=== PATIENT | male | born 1960 | race Caucasian/White ===

== ENCOUNTER 2023-06-10 07:23 | Emergency (ER) | payer OTHER, SELFPAY ==
[2023-06-10] VITALS (22 sets, daily range): BP systolic 104–195; BP diastolic 68–120; PULSE 64–115; RESP 13–20; TEMP 36.6–37; O2SAT 93–100; BMI 38.5
--- NOTE | 2023-06-10 07:45 | EKG12_ITS ---
Test Reason : CP Blood Pressure : / mmHG Vent. Rate : 118 BPM Atrial Rate : 000 BPM P-R Int : 000 ms QRS Dur : 116 ms QT Int : 340 ms P-R-T Axes : 000 -38 078 degrees QTc Int : 476 ms Atrial fibrillation with rapid ventricular response with premature ventricular or aberrantly conducte d complexes Left axis deviation Incomplete right bundle branch block Inferior infarct , age undetermined Abnormal ECG Confirmed by Jey Patel ([id number]), food editor DOREEN HERNANDEZ ([id number]) on 06/11/2023 11:16:23 AM Referred By: CHANDANA Confirmed By:Jey Patel
[2023-06-10 08:02] LABS: Absolute Lymphocyte Count 1.35 X10^3/uL (0.83-4.51); Absolute Neutrophil Count 3.4 X10^3/uL (2.0-7.7); Basophil# 0.06 X10^3/uL; Eosinophil# 0.19 X10^3/uL; Eosinophils% 3.3 % (0-5); Hematocrit 44.4 % (40-54); Hemoglobin 14.1 g/dL (13.0-16.5); Lymphocyte # 1.35 X10^3/ul (0.83-4.51); Lymphocyte % 23.6 % (19-41); Mean Corp Hgb Conc 31.8 g/dL (32-36); Mean Corpuscular Hgb 29.7 pg (27.0-32.0); Mean Corpuscular Volume 93.5 fL (80-94); Monocyte# 0.68 X10^3/uL; Monocyte% 11.9 % (0-10); NRBC Flagged by Analyzer 0 % (0-5); Neutrophil # 3.42 X10^3/uL (2.7-7.7); Neutrophil % 59.7 % (47-70); Platelet Count 240 K/mm3 (150-450); RBC Distribution Width CV 12.6 % (11.6-14.6); RBC Distribution Width SD 43.6 fl (35.1-43.9); Red Blood Count 4.75 M/mm3 (4.6-6.2); White Blood Count 5.7 K/mm3 (4.4-11.0)
--- NOTE | 2023-06-10 08:04 | RAD_ITS ---
STUDY: X-RAY CHEST REASON FOR EXAM: Male, 62 years old. Chest pain TECHNIQUE: Single AP portable view of the chest. COMPARISON: None. FINDINGS: EKG electrodes are seen. The lungs are clear and expanded. There is no demonstrated pleural abnormality. There is borderline cardiomegaly. Normal mediastinum and pal. Normal visualized pulmonary arteries. There is atherosclerotic tortuosity of the aortic arch and descending thoracic aorta. There are degenerative changes of the visualized thoracic spine. Prior fusion in the lower cervical spine. There is no demonstrated abnormality of the visualized soft tissue structures of the upper abdomen. RAD/Chest 1 View (Portable) IMPRESSION: No acute abnormality is seen. Electronically Signed: Rodrigo Hardwick MD at 10:29 EDT ,
--- NOTE | 2023-06-10 08:19 | ED.RN ---
NO OLD EKG
[2023-06-10] MEDS: Metoprolol Tartrate 5 MG/5 ML Vial IV (08:24)
--- NOTE | 2023-06-10 08:33 | ED.VIS.CHEST ---
HPI History of Present Illness Chief Complaint: Chest Pain Informant: patient Narrative Narrative: Patient is 62-year-old male with history of chronic heart failure, GERD, hyperlipidemia, prostate cancer and is unaware of history of atrial fibrillation, not on any anticoagulation however does have a documented history of proximal A-fib. He is presenting with chest discomfort, diaphoresis and racing heartbeat. Patient states he felt fine when he went to work this morning. He then started to have chest discomfort in the center of his chest that does not radiate and felt mildly short of breath. His Apple Watch that he was in A-fib and his heart rate was in the 120s. He did take 325 mg of aspirin at work. Came in for further evaluation. Notes that over the past week he has been a little more short of breath on exertion but denies any new swelling of his legs. States he gets some chronic dependent edema at the end of the workday. Denies any cough, fever, congestion or other infectious symptoms. Denies any GI or symptoms. No other complaints or concerns at this time. Cardiology visit from 05/17/[address] Patel are reviewed which shows that has a known history of coronary artery disease with moderate ostial left main stenosis on catheterization in October 2022. No stent placed and he had nonobstructive 45% proximal left main trunk lesion with no segmental wall motion abnormalities noted. There is mild global LV systolic dysfunction with an EF of 45 to 50%. Patient had chronic dyspnea on exertion. EKG with incomplete right bundle branch block and old inferior wall infarct. [facility] Medical History Anxiety and depression Chronic heart failure GERD (gastroesophageal reflux disease) Hyperlipidemia Hypertension MELINDA (obstructive sleep apnea) Paroxysmal atrial fibrillation Home Medications amlodipine 10 mg tablet 10 mg PO DAILY 05/08/23 [History Last Taken Unknown] aspirin 81 mg tablet,delayed release (Adult Aspirin Regimen) 81 mg PO DAILY 05/08/23 [History Last Taken Unknown] fluoxetine 40 mg capsule (Prozac) 40 mg PO DAILY 05/08/23 [History Last Taken Unknown] losartan 100 mg-hydrochlorothiazide 25 mg tablet 1 tab PO DAILY 05/08/23 [History Last Taken Unknown] rosuvastatin 40 mg tablet (Crestor) 40 mg PO DAILY 05/08/23 [History Last Taken Unknown] spironolactone 25 mg tablet (Aldactone) 25 mg PO DAILY 05/08/23 [History Last Taken Unknown] carvedilol 25 mg tablet 25 mg PO BID 05/17/23 [History Last Taken Unknown] ezetimibe 10 mg tablet 10 mg PO DAILY 05/17/23 [History Last Taken Unknown] Allergy/AdvReac Type Severity Reaction Status Date / Time lisinopril AdvReac cough Verified 06/10/23 07:26 Family History Father Arrhythmia Arthritis Hypertension Cancer Heart disease Mother Arthritis Brother Hypertension Sister Cancer Surgical History History of back surgery History of cardiac catheterization History of elbow surgery History of right knee surgery History of surgery on arm Social History Smoking Status: Never smoker Smokeless tobacco user: chewing tobacco alcohol intake: current substance use type: does not use caffeine: Yes Type: carbonated beverages ROS ROS ED Constitutional Constitutional ED: Reports sweats; Denies chills or fever(s) Eyes Eyes: Denies change in vision ENT ENT ED: Denies sore throat Cardiovascular Cardiovascular: Reports as per HPI, chest pain and palpitations Respiratory/Chest Respiratory/Chest: Reports dyspnea on exertion; Denies cough or dyspnea Gastrointestinal Gastrointestinal: Denies abdominal pain, diarrhea, nausea or vomiting Musculoskeletal Musculoskeletal: Denies arthralgias or myalgias Integumentary Denies rash Neurologic Neurologic: Denies headache(s), paresthesias or weakness Psychiatric Psychiatric: Denies anxiety Hematologic/Lymphatic Hematologic/Lymphatic: Denies easy bleeding or easy bruising EXAM Physical Exam Const Vital Signs: 06/10/23 07:26 06/10/23 07:41 06/10/23 07:53 Temperature 98.6 F Temperature Source Temporal Pulse Rate 82 Respiratory Rate 18 Respiratory Effort Normal Non-Labored Blood Pressure 195/120 H Blood Pressure Mean 145 Pulse Ox 100 97 Oxygen Delivery Method Room Air Room Air 06/10/23 08:23 06/10/23 08:47 06/10/23 09:01 Temperature Temperature Source Pulse Rate 115 H 84 85 Respiratory Rate 17 13 16 Respiratory Effort Blood Pressure 146/94 H 135/107 H 138/89 H Blood Pressure Mean 111 116 105 Pulse Ox 96 96 97 Oxygen Delivery Method Room Air Room Air 06/10/23 10:19 06/10/23 10:21 06/10/23 10:25 Temperature Temperature Source Pulse Rate 94 94 97 Respiratory Rate 19 H 19 H Respiratory Effort Blood Pressure 155/109 H 155/109 H 122/89 H Blood Pressure Mean 124 100 Pulse Ox 97 97 Oxygen Delivery Method Room Air 06/10/23 11:01 06/10/23 12:05 06/10/23 12:08 Temperature Temperature Source Pulse Rate 83 92 85 Respiratory Rate 20 H 16 19 H Respiratory Effort Blood Pressure 132/94 H 123/83 H 125/83 H Blood Pressure Mean 106 96 97 Pulse Ox 98 98 97 Oxygen Delivery Method Room Air Room Air Room Air 06/10/23 13:08 06/10/23 12:00 06/10/23 13:00 Temperature Temperature Source Pulse Rate 81 84 105 H Respiratory Rate 18 18 Respiratory Effort Blood Pressure 145/107 H 125/83 H 145/107 H Blood Pressure Mean 97 119 Pulse Ox 97 93 Oxygen Delivery Method Room Air Room Air 06/10/23 13:30 06/10/23 14:00 Temperature Temperature Source Pulse Rate 87 76 Respiratory Rate 18 16 Respiratory Effort Blood Pressure 137/117 H 124/89 H Blood Pressure Mean 123 100 Pulse Ox 98 96 Oxygen Delivery Method Room Air Room Air Positive well nourished General Appearance ED: Negative for pallor HEENT Reports moist mucous membranes normocephalic Eyes General Eye ED: Negative for pale conjunctiva Neck supple and no JVD Chest Wall inspection of chest normal and palpation of chest normal Resp normal respiratory effort and clear to auscultation bilaterally Cardio no murmurs Rate: tachycardic Rhythm: abnormal rhythm irregularly irregular GI normal to inspection, nondistended, normoactive bowel sounds and soft to palpation Extremity normal to inspection General Extremety ED: Negative for edema General Extremity: Negative for edema Neuro oriented x3 Sensorium / Orientation: awake and alert Motor Exam: Negative for general weakness Psych mental status grossly normal Skin no rashes or lesions noted and no wounds General Skin Exam: Negative for pallor MDM MDM MDM Narrative Medical decision making narrative: Patient is evaluated for chest discomfort as well as diaphoresis. Upon arrival he is tachycardic and hypertensive. He is found to be in atrial fibrillation. He is not currently treated for atrial fibrillation. Is given IV metoprolol with improvement of rate control however he continues to have chest pain. Because of this continued chest discomfort is given trial of nitroglycerin with improvement. Is given further nitroglycerin and then Nitropaste. Case is discussed with his french teacher, Dr. Patel as his workup was otherwise normal with a normal D-dimer, normal high since he troponin, only a mildly elevated BNP (clinically does not appear fluid overloaded) and a normal TSH with no significant electrolyte abnormalities. We reviewed the patient's prior cath report shows that patient does have left mMain trunk disease. Concern is that he needs a specialized catheterization of the left main trunk. His french teacher that previously cardiac catheter in him is at [facility], Dr. Summers. Dr. Patel is able to speak to Dr. Banda who is covering for his french teacher. He feels that patient should go to the [facility]. I discussed with the cardiac fellow there who accepts the patient under Dr. Nolan's service. Patient is given a dose of Eliquis as well as Toprol tartrate in the emergency room with new onset atrial fibrillation and for further rate control. Patient and are agreeable with this plan of care. History & Record Review Additional record(s) reviewed:: Prior outpatient record (Cardiology visit) Lab Data Attestation: I reviewed the patient's lab results. Labs: Laboratory Results - last 24 hr 06/10/23 06/10/23 07:35 10:22 WBC 5.7 RBC 4.75 Hgb 14.1 Hct 44.4 MCV 93.5 MCH 29.7 MCHC 31.8 L RDW Std Deviation 43.6 RDW Coeff of Jaqueline 12.6 Plt Count 240 MPV 11.0 Immature Gran % (Auto) 0.500 Neut % (Auto) 59.7 Lymph % (Auto) 23.6 [place] % (Auto) 11.9 H Eos % (Auto) 3.3 Baso % (Auto) 1.0 Absolute Neuts (auto) 3.4 Absolute Lymphs (auto) 1.35 Nucleated RBC % 0 PT 14.1 INR 1.1 APTT 29.6 D-Dimer Quant (PE/DVT) 0.28 Sodium 143 Potassium 3.3 L Chloride 110 H Carbon Dioxide 26.0 Anion Gap 7 BUN 10 Creatinine 1.24 Estim Creat Clear Calc 87.09 Est GFR (MDRD) Af Amer 76 Est GFR (MDRD) Non-Af 63 BUN/Creatinine Ratio 8.1 L Glucose 108 H Calcium 8.7 Magnesium 2.1 Troponin I High Sens 17 20 B-Natriuretic Peptide 142.3 H TSH 3.44 Radiography Chest X-Ray - ED: 1 View, Read by ED Physician, Read by Radiologist and No Acute Disease Diagnostic Testing: Clinical Impression(s) from Imaging Studies Chest X-Ray 06/10/23 08:04 IMPRESSION: No acute abnormality is seen. Electronically Signed: Rodrigo Hardwick MD at 10:29 EDT , Rhythm Strip Rhythm Strip: A-fib Rate: 118 Ectopy: None and PVC(s) EKG Initial EKG: Attestation: I personally reviewed and interpreted this EKG as follows: Interpretation: Atrial Fibrillation Comments: Atrial fibrillation with rapid ventricular response at a rate of 118 bpm Left axis deviation Aberrantly conducted complexes present Incomplete right bundle branch block Normal ST segments Compared to prior EKG on 05/17/2023, patient is now in atrial fibrillation and has PVCs Management Discussion w/another healthcare provider: Nurse Liaison Discharge Plan Triage Chief Complaint: Chest Pain ED Provider: Stephanie Hinton Dx/Rx/DC Orders Clinical Impression: Atrial fibrillation with rapid ventricular response, Hypertension, CAD (coronary artery disease), Chest pain Prescriptions: No Action aspirin [Adult Aspirin Regimen] 81 mg tablet,delayed release (DR/EC) 81 mg PO DAILY spironolactone [Aldactone] 25 mg tablet 25 mg PO DAILY rosuvastatin [Crestor] 40 mg tablet 40 mg PO DAILY fluoxetine [Prozac] 40 mg capsule 40 mg PO DAILY losartan-hydrochlorothiazide 100-25 mg tablet 1 tab PO DAILY amlodipine 10 mg tablet 10 mg PO DAILY carvedilol 25 mg tablet 25 mg PO BID Rx Instructions: must administer with a meal/food ezetimibe 10 mg tablet 10 mg PO DAILY Primary Care Provider: Edvin Rodríguez Referrals: Edvin Rodríguez DO [Primary Care Provider] - Disposition Disposition: Acute Care Hospital Discharge Location: [facility]
[2023-06-10 08:41] LABS: BNP,B-Type NATRIURETIC PEPTIDE 142.3 pg/mL (0-100)
[2023-06-10 09:03] LABS: Partial Thromboplast Time 29.6 Seconds (24.1-36.2)
[2023-06-10 09:11] LABS: International Normalized Ratio 1.1; Prothrombin Time (Protime)PT. 14.1 SECONDS (11.7-14.9)
[2023-06-10 09:24] LABS: D-Dimer Quantitative (DVT/PE) 0.28 FEU/ug/m (0.27-0.49)
[2023-06-10 10:07] LABS: Anion Gap 7 (5-15); BUN 10 mg/dL (7-18); BUN/Creat Ratio 8.1 RATIO (10-20); Calcium,Total 8.7 mg/dL (8.5-10.1); Chloride 110 mmol/L (98-107); Creatinine, Serum 1.24 mg/dL (0.70-1.30); EST Glomerular Filtration Rate 63 mL/min (>60); Est Glom Filt Rate - Afr Amer 76 mL/min (>60); Estimated Creatinine Clearance 87.09 ml/min; Glucose 108 mg/dL (74-106); Magnesium 2.1 mg/dL (1.6-2.6); Potassium 3.3 mmol/L (3.5-5.1); Reflex Troponin-HS? (from REC) Y; Sodium Level 143 mmol/L (136-145); Thyroid Stim Hormone (TSH) 3.44 uIU/mL (0.358-3.74); Troponin-I HS (w/2H Reflex) 17 pg/mL (3.0-78.0)
[2023-06-10] MEDS: Nitroglycerin SL (ED/IMG/CATH) 0.4 MG TABLET 0.400000000000000022 MG SL (10:21)
[2023-06-10 10:49] LABS: Troponin-I HS 20 pg/mL (3.0-78.0)
--- NOTE | 2023-06-10 13:01 | CON.PCM.CA_ITS ---
Assessment & Plan Assessment/Plan (1) Paroxysmal atrial fibrillation: PLAN: Patient has a history of episodic short bursts of palpitations. His iWatch has never told he is in atrial fibs until today at over 600 hours. His palpitations have persisted since that point in time. Presented the emergency department with a rapid ventricular response to his atrial fibrillation. He also was complaining of chest discomfort but is cardiac high-sensitivity troponins were 17 and 20 respectively. The patient does have known left main trunk disease. He has minimal other disease on catheterization October 2022. (2) CAD (coronary artery disease): QUALIFIERS: Coronary Disease-Associated Artery/Lesion type: [place] artery [place] vs. transplanted heart: [place] heart Associated angina: with unspecified form of angina Qualified Code(s): I25.119 - Atherosclerotic heart disease of [place] coronary artery with unspecified angina pectoris PLAN: The patient's left main trunk was 45% the minimal luminal diameter was measured at 8.6 mm and the IFR was 0.99 Catheterization October 2022. This was done by Dr. Summers at [facility]. The patient is now complaining of chest discomfort despite his rate being controlled but remaining in atrial fibrillation. Given his left main trunk lesion I am concerned about putting this patient on a treadmill and he does have significant dyspnea on exertion which would limit his exercise ability. I did not feel that a patient with a known ostial left main trunk lesion should be cath in the low risk lab and therefore we will ask that he be transferred to [facility] to the service of Dr. Wilson for for further evaluation. The patient and had requested this and I agree that this is the best route of the evaluation. (3) Chronic heart failure: QUALIFIERS: Heart failure type: systolic Qualified Code(s): I50.22 - Chronic systolic (congestive) heart failure PLAN: The patient appears to be well compensated from his heart failure he is on guideline medical therapy. He is not on SGLT2 inhibitors. (4) Hypertension: QUALIFIERS: Hypertension type: primary hypertension Qualified Code(s): I10 - Essential (primary) hypertension PLAN: The patient has known and aggressive medical therapy his systolic was elev ated in the office back in May. His blood pressures have been labile in the emergency department but have he has not been hypotensive. (5) Hyperlipidemia: QUALIFIERS: Hyperlipidemia type: mixed hyperlipidemia Qualified Code(s): E78.2 - Mixed hyperlipidemia PLAN: Lipids are treated by his primary care physician Dr. Rodríguez he is on aggressive statin therapy. PLAN: Plan 1. Will continue use of Lopressor for rate control. Will add nitroglycerin paste due to recurrence of his chest symptoms. 2. Will defer oral anticoagulation at this time he has been in atrial fibrillation for less than 8 hours. Will await decision from [facility] on transfer to then decide on timing of anticoagulation and route of anticoagulation. 3. Transfer to [facility] to Dr. Shelia Summers. 4. The patient will follow-up with me here in the office at [facility] following definitive evaluation and therapy at [facility] HPI Consult Data Date of Consult: 06/10/23 HPI Narrative Reason for Consultation: Chest pain with atrial fibrillation with RVR HPI Narrative: TYSON CARBAJAL, is a 62 M who presents to the emergency room this morning after developing atrial fibs documented by his iWatch at 0600 hrs. His heart rate was in the 1 50-1 80 range by his watch and he developed diaphoresis. He also had some chest discomfort and came to the emergency department at the instructions of his who is a cardiovascular nurse. In the emergency department his rate was controlled with Lopressor and he continues to have some chest discomfort. This resolved with sublingual nitro but then recurred as I was talking to him about treatment and evaluation options. The patient is EKG showed atrial fibrillation with a rapid ventricular response heart rate in the 120 bpm range. There was no definitive ischemic EKG changes he did have frequent PVCs and couplets. The patient has a history of ventricular tachycardia which led to an original catheterization in October [address] Shelia Summers at [facility]. That cath revealed an ostial 45% left main trunk lesion with a luminal diameter measured at 8.6. IFR was 0.99. This was not felt to be clinically significant. The patient has done fairly well since that point in time he has had dyspnea on exertion that predated this cath and is consistent continue following his cath. His EF was 45 to 50% on the cath in a global fashion. He has had episodes of palpitations that lasts 5 to 10 minutes and resolve spontaneously they are not predictable and occur episodically he is EKG done office when he was last seen May 17, 2023 showed an incomplete right bundle branch block normal sinus rhythm and old inferior wall infarct. His medical therapy includes carvedilol 25 mg twice daily losartan hydrochlorothiazide and spironolactone his own and he is on intensive statin therapy through the statin 40 mg daily and amlodipine for additional blood pressure control his blood pressure in the office was elevated at 166/77. The patient does have a component depression. He also has a history of obstructive sleep apnea and is open history there is a report of paroxysmal atrial fibrillation. He has not been on oral anticoagulant therapy. He has been on 81 mg aspirin for his coronary artery disease. [facility] Medical History Anxiety and depression Chronic heart failure GERD (gastroesophageal reflux disease) Hyperlipidemia Hypertension MELINDA (obstructive sleep apnea) Paroxysmal atrial fibrillation Home Medications amlodipine 10 mg tablet 10 mg PO DAILY 05/08/23 [History Last Taken Unknown] aspirin 81 mg tablet,delayed release (Adult Aspirin Regimen) 81 mg PO DAILY 05/08/23 [History Last Taken Unknown] fluoxetine 40 mg capsule (Prozac) 40 mg PO DAILY 05/08/23 [History Last Taken Unknown] losartan 100 mg-hydrochlorothiazide 25 mg tablet 1 tab PO DAILY 05/08/23 [History Last Taken Unknown] rosuvastatin 40 mg tablet (Crestor) 40 mg PO DAILY 05/08/23 [History Last Taken Unknown] spironolactone 25 mg tablet (Aldactone) 25 mg PO DAILY 05/08/23 [History Last Taken Unknown] carvedilol 25 mg tablet 25 mg PO BID 05/17/23 [History Last Taken Unknown] ezetimibe 10 mg tablet 10 mg PO DAILY 05/17/23 [History Last Taken Unknown] Allergy/AdvReac Type Severity Reaction Status Date / Time lisinopril AdvReac cough Verified 06/10/23 07:26 Family History Father Arrhythmia Arthritis Hypertension Cancer Heart disease Mother Arthritis Brother Hypertension Sister Cancer Surgical History History of back surgery History of cardiac catheterization History of elbow surgery History of right knee surgery History of surgery on arm Social History Smoking Status: Never smoker Smokeless tobacco user: chewing tobacco alcohol intake: current substance use type: does not use caffeine: Yes Type: carbonated beverages ROS Constitutional Constitutional: Reports as per HPI Eyes Eyes: Reports systems reviewed and no addt'l complaints, except as documented ENT HEENT: Reports systems reviewed and no addt'l complaints, except as documented Cardiovascular Cardiovascular: Reports as per HPI Respiratory/Chest Respiratory/Chest: Reports as per HPI Gastrointestinal Gastrointestinal: Reports systems reviewed and no addt'l complaints, except as documented Genitourinary Genitourinary: Reports systems reviewed and no addt'l complaints, except as documented Musculoskeletal Musculoskeletal: Reports systems reviewed and no addt'l complaints, except as documented Integumentary Integumentary: Reports systems reviewed and no addt'l complaints, except as documented Neurologic Neurologic: Reports systems reviewed and no addt'l complaints, except as documented Psychiatric Psychiatric: Reports as per HPI Endocrine Endocrinology: Reports systems reviewed and no addt'l complaints, except as documented Hematologic/Lymphatic Hematologic/Lymphatic: Reports systems reviewed and no addt'l complaints, except as documented Allergic/Immunologic Allergic/Immunologic: Reports systems reviewed and no addt'l complaints, except as documented Physical Exam Const oriented x3 HEENT normocephalic Eyes EOMs intact bilaterally Neck no JVD and no carotid bruits Chest inspection of chest normal Resp normal respiratory effort and clear to auscultation bilaterally Cardio regular rate Rhythm: abnormal rhythm irregularly irregular Heart Sounds: S1 normal and S2 normal; Negative for click, gallop or murmur GI soft to palpation and non-tender Extremity no pedal edema Skin no rashes or lesions noted Neuro Neuro Narrative: Alert and oriented x 3. Psych mental status grossly normal Risk Stratification Risk Stratification Applicable: Yes Age >/= 65: No >/= 3 CAD Risk Factors (HTN, HLD, DM, family hx of CAD, or current smoker): Yes Aspirin Use in the Past 7 Days: Yes Severe Angina (>/= episodes in 24 hours): Yes EKG ST Changes >/= 0.5mm: No Positive Cardiac Marker: No KATY Risk Stratification Score: 3 KATY % Risk: 13% Risk Charges/Coding Visit Charges Inpatient E&M: 53796 Init Hosp L3 Objective Data Vital Signs: Vital Signs Temp Pulse Resp BP Pulse Ox O2 Del Method 98.6 F 85 19 H 125/83 H 97 Room Air 06/10/23 07:26 06/10/23 12:08 06/10/23 12:08 06/10/23 12:08 06/10/23 12:08 06/10/23 12:08 Oxygen Delivery Method Room Air Weight: 292 lb 5.327 oz Body Mass Index (BMI) 38.5 Lab / Micro Data Attestation: I reviewed the patient's lab results. 06/10/23 07:35 06/10/23 07:35 Labs: Laboratory Results - last 24 hr 06/10/23 07:35: WBC 5.7, RBC 4.75, Hgb 14.1, Hct 44.4, MCV 93.5, MCH 29.7, MCHC 31.8 L, RDW Std Deviation 43.6, RDW Coeff of Jaqueline 12.6, Plt Count 240, MPV 11.0, Immature Gran % (Auto) 0.500, Neut % (Auto) 59.7, Lymph % (Auto) 23.6, [place] % (Auto) 11.9 H, Eos % (Auto) 3.3, Baso % (Auto) 1.0, Absolute Neuts (auto) 3.4, Absolute Lymphs (auto) 1.35, Nucleated RBC % 0, PT 14.1, INR 1.1, APTT 29.6, D- Dimer Quant (PE/DVT) 0.28, Sodium 143, Potassium 3.3 L, Chloride 110 H, Carbon Dioxide 26.0, Anion Gap 7, BUN 10, Creatinine 1.24, Estim Creat Clear Calc 87.09, Est GFR (MDRD) Af Amer 76, Est GFR (MDRD) Non-Af 63, BUN/Creatinine Ratio 8.1 L, Glucose 108 H, Calcium 8.7, Magnesium 2.1, Troponin I High Sens 17, B- Natriuretic Peptide 142.3 H, TSH 3.44 06/10/23 10:22: Troponin I High Sens 20 Rhythm Strip Rhythm Strip: A-fib Rate: 90 Ectopy: None and PVC(s) Cardiology Labs/Tests 06/10/23 07:35: WBC 5.7, RBC 4.75, Hgb 14.1, Hct 44.4, MCV 93.5, MCH 29.7, MCHC 31.8 L, Plt Count 240, MPV 11.0, Immature Gran % (Auto) 0.500, Neut % (Auto) 59.7, Lymph % (Auto) 23.6, [place] % (Auto) 11.9 H, Eos % (Auto) 3.3, Baso % (Auto) 1.0, Absolute Neuts (auto) 3.4, Nucleated RBC % 0, PT 14.1, INR 1.1, APTT 29.6, D-Dimer Quant (PE/DVT) 0.28, Sodium 143, Potassium 3.3 L, Chloride 110 H, Carbon Dioxide 26.0, Anion Gap 7, BUN 10, Creatinine 1.24, Est GFR (MDRD) Af Amer 76, Est GFR (MDRD) Non-Af 63, BUN/Creatinine Ratio 8.1 L, Glucose 108 H, Calcium 8.7, Magnesium 2.1, B-Natriuretic Peptide 142.3 H Rhythm: EKG: ECHO: Stress Test: Cardiac Cath: PCI: CT Surgery: Holter monitor: EPS: PPM: CXR: Chest CT Scan: Radiography Diagnostic Testing: Radiology Impression Chest X-Ray 06/10/23 08:04 IMPRESSION: No acute abnormality is seen. Electronically Signed: Rodrigo Hardwick MD at 10:29 EDT , EKG Initial EKG: Attestation: I personally reviewed and interpreted this EKG as follows: Interpretation: Atrial fibrillation with a rapid ventricular response. No other significant ischemic changes there are couplet PVCs documented.
[2023-06-10] MEDS: Metoprolol Tartrate 100 MG Tablet PO (13:04)
[2023-06-10] MEDS: APIXABAN 5 MG TABLET PO (13:04)
[2023-06-10] MEDS: Nitroglycerin Oint 1 INCH PACKET TD (13:08)
--- NOTE | 2023-06-10 17:16 | ED.RN ---
updated pt about tranfer [facility], have accepting dr but no bed yet at [facility]. family at bedside;
--- NOTE | 2023-06-10 17:30 | ED.RN ---
called dietary for dinner tray
== END 2023-06-10 20:59 | disposition short-term general hospital (02) ==
PROVIDERS: Emergency Provider Emergency Medicine; PCP Family Medicine; Visit Provider Emergency Medicine
DX: I48.0 Paroxysmal atrial fibrillation (principal); I11.0 Hypertensive heart disease with heart failure; I50.22 Chronic systolic (congestive) heart failure; R07.9 Chest pain, unspecified; E78.5 Hyperlipidemia, unspecified; I25.10 Atherosclerotic heart disease of native coronary artery without angina pectoris; Z85.46 Personal history of malignant neoplasm of prostate; Z79.899 Other long term (current) drug therapy; Z79.82 Long term (current) use of aspirin; F41.8 Other specified anxiety disorders; F17.220 Nicotine dependence, chewing tobacco, uncomplicated
CPT/HCPCS: 71045; 80048; 83735; 83880; 84443; 84484; 85025; 85379; 85610; 85730; 93005; 99285; A4216

== ENCOUNTER → 2023-07-03 | Outpatient (CLI) | payer OTHER, SELFPAY ==
--- NOTE | 2023-07-03 12:44 | ECHOCS_ITS ---
Reason For Study: Heart Failure Procedure This was a 2D Doppler, Color Flow transthoracic echocardiogram. Contrast injection was performed. Exam performed in department. Left Ventricle Normal LV size. Left ventricular systolic function is normal. The estimated ejection fraction is 56 %. No regional wall motion abnormalities noted. Right Ventricle Normal RV size. Normal systolic function. Atria The left atrium is mildly enlarged. Normal right atrium. Tricuspid Valve Normal tricuspid valve. Aortic Valve Normal aortic valve. Pulmonic Valve Normal pulmonic valve. Great Vessels Normal aortic root. The pulmonary artery is normal size. Inferior vena cava collapse with respiration. Pericardium/Pleural No pericardial effusion. Medication Diluted definity 3ml given slow IV push to enhance endocardial definition. MMode/2D Measurements & Calculations LVIDd: 6.5 cm IVSd: 1.0 cm Ao root diam: 3.3 cm LVIDs: 5.2 cm LVPWd: 1.0 cm RVDd: 3.4 cm FS: 20.6 % LAV(MOD-bp): 73.3 ml LVAd ap4: 38.1 cm2 SV(MOD-sp4): 74.1 ml LAV(MOD-bp) Indexed: 29.3 ml/m2 LVLd ap4: 9.0 cm LAV(MOD-sp2): 57.7 ml EDV(MOD-sp4): 135.1 ml LAV(MOD-sp4): 77.0 ml EDV(sp4-el): 137.4 ml LVAs ap4: 23.9 cm2 LVLs ap4: 8.1 cm ESV(MOD-sp4): 60.9 ml ESV(sp4-el): 59.8 ml EF(MOD-sp4): 54.9 % EF(sp4-el): 56.4 % SV(sp4-el): 77.5 ml LA A4 area: 25.2 cm2 LA dimension(2D): 4.5 cm RA A4 area: 17.2 cm2 TAPSE: 2.4 cm Doppler Measurements & Calculations MV E max hudson: 119.7 cm/sec Lat Peak E' Hudson: 13.4 cm/sec Med Peak E' Hudson: 9.3 cm/sec E/E' lat: 9.0 E/E' med: 12.9 Ao V2 max: 158.2 cm/sec LV V1 max: 105.8 cm/sec PA V2 max: 90.2 cm/sec Ao max P.0 mmHg LV V1 max P.5 mmHg Ao V2 mean: 112.7 cm/sec Ao mean P.8 mmHg Ao V2 VTI: 33.3 cm PI end-d hudson: 72.2 cm/sec TR max hudson: 242.2 cm/sec TR max P.5 mmHg ECHO/Echo Complete W/ Contrast Interpretation Summary Normal LV size. Left ventricular systolic function is normal. The estimated ejection fraction is 56 %. The left atrium is mildly enlarged. Contrast injection was performed. Ordering Physician: Jey Patel Referring Physician: Edvin Rodríguez Performed By: Danita Pena RVT, RDCS and Student
== END | disposition home or self-care (01) ==
LOC: CVS 12:43
PROVIDERS: PCP Family Medicine; Referring Provider Internal Medicine Cardiovascular Disease; Visit Provider Internal Medicine Cardiovascular Disease
DX: I50.9 Heart failure, unspecified (principal); I51.7 Cardiomegaly
CPT/HCPCS: 93306; Q9957; A4216; C8929

== ENCOUNTER 2023-07-23 10:24 | Day surgery (SDC) | payer OTHER, SELFPAY ==
[2023-07-22 08:56] VITALS: BMI 37.3
--- NOTE | 2023-07-23 12:17 | PRO.PCM_ITS ---
Procedure Report Date of Procedure: 07/23/23 CONSCIOUS SEDATION REPORT DATE OF SERVICE: July 23, 2023 BRIEF HISTORY OF PRESENT ILLNESS: The patient is a 62-year-old male who presented to [facility] for an elective outpatient cardioversion due to underlying atrial fibrillation. The patient has never undergone a prior cardioversion. He denied any prior anesthetic complications. He does have a known history of obstructive sleep apnea, for which he reports compliance with nocturnal PAP therapy. The patient is systemically anticoagulated on Eliquis. His last surface echocardiogram demonstrated an ejection fraction of approximately 50%. PHYSICAL EXAMINATION: VITAL SIGNS: Reviewed and were acceptable. GENERAL: The patient is a male, in no apparent distress, speaking in full sentences. HEENT: Normocephalic, atraumatic. Mucous membranes are moist and pink. Good mouth opening noted. Trachea is midline. Good neck mobility. CHEST: S1, S2 irregularly irregular. No murmurs, rubs or gallops were noted. LUNGS: Clear to auscultation bilaterally without appreciable wheezes, rales or rhonchi. ABDOMEN: Soft, nontender, nondistended. Positive bowel sounds. EXTREMITIES: There is no clubbing, cyanosis or edema. ASA Class: II DESCRIPTION OF PROCEDURE: After confirmation of informed consent, the patient's anesthesia plan was reviewed in detail. Propofol was chosen. Risks and benefits were reviewed and the patient agreed to proceed. At 1158, the patient was given his first bolus of propofol. In total, the patient required 100 mg of propofol to achieve an appropriate level of sedation, after which time, he was given a 200 joule synchronized cardioversion by Dr. Patel at the bedside. This was successful in achieving normal sinus rhythm. The patient was monitored until 1212, at which time he reached his baseline mental status and function. The patient tolerated the procedure well. COMPLICATIONS: None ESTIMATED BLOOD LOSS: None RECOMMENDATIONS: Okay to recover in usual fashion. Procedures Pulmonary [id number]: [id number] Con Sedation
--- NOTE | 2023-07-23 12:19 | PRO.PCM_ITS ---
Procedure Report Date of Procedure: 07/23/23 Direct-current cardioversion Patient was brought to the [facility] in the fasting state. He had been on Eliquis for over 5 weeks uninterrupted. The patient has a history of paroxysmal atrial fibrillation with fatigue and has had recurrent noncardiac chest pains. The patient had undergone left heart catheterization recently which revealed a left main trunk lesion of 40% by both angiographic and intravascular ultrasound criteria. This was not felt to be significant. An echocardiogram was done the first week of June which showed an ejection fraction of 66% mild left atrial enlargement and no significant valvular heart disease. The patient was therefore scheduled for direct-current cardioversion. The patient did have an episode of profound hypotension last week and his medications were adjusted. He is hemodynamically stable today. The patient's heart rate has been well-controlled and his atrial fibs but he has persistent fatigue. Dr. Clinton Artis provided anesthesia with 100 mg of propofol. Once felt to be appropriately anesthetized a single 200 J synchronized shock was delivered. The patient converted from atrial fibrillation to sinus bradycardia at 55 bpm. The patient awoke from anesthesia was no neurologic deficits and was back to baseline. The patient will be discharged to home to the care of his family. He has an appointment set up for July 25 in my office. Will obtain a repeat EKG at that point in time. His EKG done today following cardioversion showed a sinus rhythm at [address] or T wave changes. Assessment & Plan Assessment/Plan (1) Paroxysmal atrial fibrillation: PLAN: Status post successful direct-current cardioversion to sinus bradycardia. Procedures Coronary Therapeutic CF Procedures [id number]: [id number] Cardioversion electric ext
== END 2023-07-23 12:15 | disposition home or self-care (01) ==
LOC: CLSP 10:26
PROVIDERS: PCP Family Medicine; Visit Provider Internal Medicine Cardiovascular Disease
DX: I48.0 Paroxysmal atrial fibrillation (principal); I50.22 Chronic systolic (congestive) heart failure; I11.0 Hypertensive heart disease with heart failure; Z79.82 Long term (current) use of aspirin; F17.220 Nicotine dependence, chewing tobacco, uncomplicated; I25.119 Atherosclerotic heart disease of native coronary artery with unspecified angina pectoris; K21.9 Gastro-esophageal reflux disease without esophagitis; E78.5 Hyperlipidemia, unspecified; G47.33 Obstructive sleep apnea (adult) (pediatric); F41.9 Anxiety disorder, unspecified; F32.A Depression, unspecified; R42 Dizziness and giddiness; R53.83 Other fatigue; R11.0 Nausea; R06.02 Shortness of breath
CPT/HCPCS: 92960; 93005; J7040

== ENCOUNTER → 2024-05-04 | Outpatient (CLI) | payer OTHER, SELFPAY ==
--- NOTE | 2024-05-04 13:39 | ECHOL_ITS ---
Reason For Study: CHF Procedure This was a limited 2D transthoracic echocardiogram. Myocardial strain analysis was performed in this exam to aid in the assessment of cardiac function. Exam performed in department. Left Ventricle Normal LV size. The global longitudinal strain = -18.1 % (normal). The left ventricular ejection fraction is 55 %. No regional wall motion abnormalities noted. Right Ventricle Normal RV size. Normal systolic function. Atria The left atrium is mildly enlarged. Normal right atrium. Mitral Valve Normal mitral valve. Tricuspid Valve Normal tricuspid valve. Aortic Valve Trisinus/trileaflet aortic valve. Pulmonic Valve Normal pulmonic valve. Great Vessels Normal aortic root. The pulmonary artery is normal size. Normal inferior vena cava. Pericardium/Pleural No pericardial effusion. MMode/2D Measurements & Calculations LVIDd: 6.0 cm IVSd: 1.3 cm LA dimension: 4.4 cm LVIDs: 4.3 cm LVPWd: 1.0 cm FS: 28.8 % _ LAV(MOD-bp): 94.1 ml LVAd ap4: 45.6 cm2 SV(MOD- sp4): 92.5 ml LAV(MOD-bp) Indexed: 38.5 ml/m2 LVLd ap4: 9.4 cm SI(MOD- sp4): 37.9 ml/m2 LAV(MOD-sp2): 84.7 ml EDV(MOD-sp4): 179.1 ml LAV(MOD-sp4): 85.5 ml EDV(sp4-el): 186.5 ml LVAs ap4: 28.3 cm2 LVLs ap4: 7.9 cm ESV(MOD-sp4): 86.7 ml ESV(sp4-el): 85.7 ml EF(MOD-sp4): 51.6 % EF(sp4-el): 54.1 % _ SV(sp4-el): 100.8 ml LA A4 area: 26.0 cm2 RA A4 area: 20.6 cm2 ECHO/Echo, Limited Study Interpretation Summary Normal LV size. The global longitudinal strain = -18.1 % (normal). The left ventricular ejection fraction is 55 %. Mild biatrial enlargement Structurally normal valves. Ordering Physician: Bob Pena Referring Physician: Bob Pena Performed By: Tramaine Pretty RCS
== END | disposition home or self-care (01) ==
LOC: CVS 13:39
PROVIDERS: PCP Family Medicine; Referring Provider Nurse Practitioner Family; Visit Provider Nurse Practitioner Family
DX: I50.22 Chronic systolic (congestive) heart failure (principal); I48.0 Paroxysmal atrial fibrillation; I25.119 Atherosclerotic heart disease of native coronary artery with unspecified angina pectoris
CPT/HCPCS: 93308

== ENCOUNTER → 2025-02-18 | Outpatient (CLI) | payer OTHER, MEDICARE, SELFPAY ==
[2025-02-18 09:11] LABS: Hematocrit 34.2 % (40-54); Hemoglobin 11.0 g/dL (13.0-16.5); Immature Granulocytes Count 0.010 X10^3/uL (0.0-0.0); Mean Corp Hgb Conc 32.2 g/dL (32-36); Mean Corpuscular Volume 92.7 fL (80-94); Mean Platelet Vol. 10.7 fl (6.2-12.0); NRBC Flagged by Analyzer 0 % (0-5); Platelet Count 182 K/mm3 (150-450); RBC Distribution Width CV 12.3 % (11.6-14.6); RBC Distribution Width SD 41.9 fl (35.1-43.9); Red Blood Count 3.69 M/mm3 (4.6-6.2); White Blood Count 3.8 K/mm3 (4.4-11.0)
[2025-02-18 09:45] LABS: Anion Gap 8 (5-15); BUN 16 mg/dL (4-19); BUN/Creat Ratio 12.3 RATIO (10-20); Calcium,Total 8.8 mg/dL (7.6-11.0); Carbon Dioxide 25.8 mmol/L (21.0-32.0); Chloride 108 mmol/L (98-108); Glucose 101 mg/dL (70-99); Potassium 4.4 mmol/L (3.3-5.1); Pro- Brain NATRIURETIC PEPTIDE 236 pg/mL (<=900)
== END | disposition home or self-care (01) ==
LOC: LAB 08:50
PROVIDERS: PCP Family Medicine; Referring Provider Nurse Practitioner Family; Visit Provider Nurse Practitioner Family
DX: I25.119 Atherosclerotic heart disease of native coronary artery with unspecified angina pectoris (principal); I50.22 Chronic systolic (congestive) heart failure; I11.0 Hypertensive heart disease with heart failure; I48.0 Paroxysmal atrial fibrillation; R06.09 Other forms of dyspnea
CPT/HCPCS: 36415; 80048; 83880; 84443; 85025